=== PATIENT | male | born 1965 | race American Indian/Alaskan Native ===

== ENCOUNTER 2022-01-05 19:40 | Emergency (ER) | payer BC, MEDICAID ==
[2022-01-05] MEDS ORDERED: ASPIRIN 325 MG TAB PO ONE (21:24)
--- NOTE | 2022-01-05 22:00 | XRay Report ---
CHEST 2 VIEWS INDICATION / CLINICAL INFORMATION: CHEST PAIN. COMPARISON: None available. FINDINGS: SUPPORT DEVICES: None. HEART / MEDIASTINUM: No significant abnormality. LUNGS / PLEURA: No significant pulmonary or pleural abnormality. No pneumothorax. ADDITIONAL FINDINGS: No significant additional findings. IMPRESSION: 1. No acute findings. Signer Name: Josue Del Cid MD Signed: 01/05/2022 9:56 PM Workstation Name: [id number]
[2022-01-05 22:13] LABS: Alanine Aminotransferase 17 units/L (7-56); Albumin 4.8 g/dL (3.9-5); BUN/Creatinine Ratio 13; Blood Urea Nitrogen 10 mg/dL (9-20); Calcium 9.2 mg/dL (8.4-10.2); Hemolysis Index 7
[2022-01-05 22:29] LABS: Basophils # (Auto) 0.1 K/mm3 (0.0-0.1); Basophils % (Auto) 1.3 % (0.0-1.8); Eosinophils % (Auto) 0.1 % (0.0-4.3); Lymphocytes # (Auto) 1.2 K/mm3 (1.2-5.4); Lymphocytes % (Auto) 19.5 % (13.4-35.0); Mean Corpuscular HGB Conc 35 % (32-34); Mean Corpuscular Volume 99 fl (84-94); Monocytes # (Auto) 0.6 K/mm3 (0.0-0.8); Monocytes % (Auto) 8.8 % (0.0-7.3); Platelet Count 242 K/mm3 (140-440); Red Blood Count 4.36 M/mm3 (3.65-5.03); Red Cell Distribution Width 14.1 % (13.2-15.2)
[2022-01-05] MEDS ORDERED: SODIUM CHLORIDE 0.9% 1000 ML 1,000 ML IV ONE (23:06)
[2022-01-05] MEDS ORDERED: ONDANSETRON 4 MG/2 ML INJ IV ONE (23:06)
[2022-01-05] MEDS ORDERED: fentaNYL 100 MCG/2 ML INJ IV ONE (23:06)
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
[2022-01-05] MEDS ORDERED: diphenhydrAMINE 50 MG/ML VIAL ONE (23:55)
[2022-01-06] MEDS ORDERED: SODIUM CHLORIDE 0.9% 1000 ML 1,000 ML IV ONE (01:43)
[2022-01-06 01:53] VITALS: BP 144/87
--- NOTE | 2022-01-06 02:08 | Ultrasound Report ---
ULTRASOUND ABDOMEN, LIMITED INDICATION / CLINICAL INFORMATION: Abdominal pain nausea vomiting. COMPARISON: None available. FINDINGS: PANCREAS: Visualized portion shows no significant abnormality. LIVER: Increased echotexture of the liver is demonstrated. The right hepatic lobe measures 15.4 cm. N ormal hepatopedal blood flow in the main portal vein. GALLBLADDER: No significant abnormality. BILE DUCTS: No significant abnormality. Common bile duct measures 2.8 mm. FREE FLUID: None. ADDITIONAL FINDINGS: Longitudinal images of the aorta and inferior vena cava demonstrate no acute fin dings. IMPRESSION: 1. No acute findings. 2. Mild hepatic steatosis not excluded. Signer Name: Duke Myrick II, MD Signed: 01/06/2022 2:04 AM Workstation Name: [id number]
--- NOTE | 2022-01-06 11:53 | Electrocardiograph Report ---
[facility] Test Date: 2022-01-05 Test Time: 19:45:06 Pat Name: KRUNAL JAMES Department: Room: Gender: Band Tier: [id number] : 1965 Requested By: STEVE STOVALL Order Number: [id number] Reading MD: Micha Andrea Measurements Intervals [place] Rate: 97 P: 71 IA: 209 QRS: 62 QRSD: 72 T: 40 QT: 370 QTc: 470 Interpretive Statements Sinus rhythm Prolonged IA interval Biatrial enlargement Consider anteroseptal infarct No previous ECG available for comparison Electronically Signed On 01-06-2022 11:53:36 EST by Micha Andrea
== END 2022-01-06 02:53 | disposition home or self-care (01) ==
LOC: ED 19:40
DX: R11.2 Nausea with vomiting, unspecified (principal); Z87.891 Personal history of nicotine dependence; I10 Essential (primary) hypertension
CPT/HCPCS: 36415; 71046; 76705; 80053; 83690; 84484; 85025; 93005; 93010; 96361; 96374; 96375; 99284; J1200; J2405; J3010; J7030; Q0162